=== PATIENT | female | born 1965 | race African-American/Black ===

== ENCOUNTER 2023-12-15 19:01 | Emergency (ER) | payer OTHER ==
[2023-12-15 19:18] VITALS: BMI 27.4
[2023-12-15] MEDS ORDERED: LABETALOL HCL 100 MG TABLET (FP) ONE (22:00)
[2023-12-15] MEDS: LABETALOL HCL 100 MG TABLET (FP) PO ONE (22:00)
[2023-12-15 22:06] VITALS: BP 195/95; PULSE 78; RESP 16; TEMP 98.2
[2023-12-15 23:29] LABS: BASO % 0.7 % (0-2.0); EOS % 1.6 % (0-4.5); HEMATOCRIT 38.2 % (32.4-45.2); HEMOGLOBIN 12.6 GM/dL (10.7-15.3); LYMPH % 38.2 % (8-40); MCHC 32.9 g/dl (32.0-36.0); MEAN CELL VOLUME 85.2 fl (80-96); MEAN PLT VOLUME 8.3 fl (7.5-11.1); MONO % 10.7 % (3.8-10.2); NEUT % 48.8 % (42.8-82.8); PLATELET COUNT 295 10^3/uL (134-434); RBC 4.49 M/mm3 (3.60-5.2); RDW 14.1 % (11.6-15.6); WHITE BLOOD COUNT 6.1 K/mm3 (4.0-10.0)
[2023-12-15 23:48] LABS: POTASSIUM 4.4 mmol/L (3.5-5.1)
[2023-12-15 23:49] LABS: ALBUMIN 3.6 g/dl (3.4-5.0); BLOOD UREA NITROGEN 16.1 mg/dL (7-18); CALCIUM 9.7 mg/dL (8.5-10.1)
[2023-12-15 23:52] LABS: CREATININE 0.6 mg/dL (0.55-1.3)
[2023-12-15 23:55] LABS: BILIRUBIN,TOTAL 0.4 mg/dL (0.2-1); TOT PROT 7.3 g/dl (6.4-8.2)
[2023-12-16] MEDS ORDERED: VALSARTAN 80 MG TABLET ONE (00:17)
[2023-12-16] MEDS: VALSARTAN 40 MG TABLET PO ONE (00:25)
== END 2023-12-16 00:30 | disposition home or self-care (01) ==
LOC: JER 19:01
DX: M54.50 Low back pain, unspecified (principal); M43.10 Spondylolisthesis, site unspecified
CPT/HCPCS: 36415; 71045-TC-FY; 72100-TC-FY; 80053; 84484; 85025; 93005; 93010; 99285-25